=== PATIENT | female | born 1960 | race Caucasian/White ===

== ENCOUNTER → 2016-12-23 | Outpatient (CLI) | payer OTHER ==
[~2016-12-23] VITALS: Ht 160 cm; Wt 90.7 kg
[~2016-12-23] MED LIST: ABILIFY 2 MG2 M1 PO; ACTIGALL300 MG PO; ACTIQ 400 MCG400 MCG BU; ACTIQ BC; ACTIQ BUCCAL; ACTIQ400 MCG BC; ADULT LOW DOSE81 MG PO; ADVAIR HFA115 MCG/21 INH; ALBUTEROL2.5 MG/0.1 IH; ALBUTEROL2.5 MG/3 M INH; ALEVE220 M1 PO; AMITRIPTYLINE H25 M2 PO; ASPIR 8181 MG PO; AUGMENTIN 875875 M1 PO; AVELOX 400 MG400 MG PO; BREO ELLIPTA 11 EACH IH; BYSTOLIC10 MG PO; CALCIUM 500 +1 EAC5 PO; CENTRUM SILVER1 EAC3 PO; CHLORDIAZEPOXIDE5 M2 PO; COLACE100 MG PO; CYCLOBENZAPRINE10 MG PO; CYMBALTA20 MG PO; DAZIDOX10 MG PO; DEXILANT60 MG PO; DILAUDID HP10 MG/M1 IT; DILAUDID-H10 MG/1 M1 IJ; DIOVAN HCT 3201 EAC1 PO; ELAVIL PO; EPIPEN0.3 MG/0.3 IM; FERROUS GLUCON324 MG PO; FIFTY50 RESERV1 EACH; FISH OIL 1,0001 EAC5 PO; FISH OIL 1,001000 M3 PO; FISHOIL PO; FLUOXETINE HCL20 M1 PO; GLYCOLAX POWDER17 G1 PO; HYDROCHLOROTH12.5 MG PO; HYDROCHLOROTHIA25 M1 PO; HYDROXYZINE HCL10 M1 PO; IRON325 PO; JANUMET 50-5001 EACH PO; KLOR-CON 88 ME1 PO; LANTUS SC; LASIX 20 MG TAB20 MG PO; LASIX 40 MG TAB40 M1 PO; LEVAQUIN; LEVOTHROID75 MCG PO; LEVOTHYROXIN0.025 MG PO; LEVOTHYROXIN0.075 MG PO; LIDODERM 5%1 PATCH TOP; LINZESS145 MCG PO; LYRICA; MEDROLDOSEPACK PO; METOCLOPRAMIDE 55 M1 PO; MIRALAX255 GM PO; MULTI-VITAMIN1 EAC1 PO; NEURONTIN 300300 M1 PO; NORFLEX100 MG PO; NORVASC 5 MG TAB5 MG PO; NOVOLOG100 UNIT/1 SQ; PANTOPRAZOLE SO40 M1 PO; PRAVACHOL20 MG PO; PREDNISONE 5 MG5 M1 PO; PREDNISONE PO; PROAIR HFA8.5 GM INH; PROTONIX40 M2 PO; PROVENTIL IH; PROZAC 20 MG20 M1 PO; RANITIDINE HCL300 M1 PO; SYMBICORT IN; SYMBICORT160 MCG/4. PO; VALIUM5 MG PO; VALSARTAN-HCTZ1 EAC3 PO; VENTOLIN HFA 1818 GM INH; VENTOLIN HFA INH8 GM INH; VENTOLIN17 GM INH; VITAMIN B122500 MCG PO; VITAMIN D1000 UNI1 PO; VITAMIN D3400 UNIT PO; XANAX 0.5 MG0.5 MG PO; XOLAIR IJ
--- NOTE | ~2016-12-23 | P ---
[facility] [place] [address] PROCEDURE REPORT Name: YODERDANIELLE MELISSA Room #: REG TD Car#: [id number] Admission: 12/23/16 Attend Phys: Jame Juares Discharge: Date of : 60 Report #: [id number] THIS REPORT FOR: //name// CC: Jame NASH MD DATE OF SERVICE: 12/23/2016 PROCEDURE PERFORMED: Upper endoscopy with biopsies. HISTORY OF PRESENT ILLNESS: The patient is a 56-year-old female with a history of Colindres's esophagus and low-grade dysplasia has undergone ablation therapy by myself multiple times in the past, last upper endoscopy was negative for Colindres's 6 months ago. She denies any dysphagia. She has a history of Michael fundoplication. She does take a PPI on a daily basis. DESCRIPTION OF PROCEDURE: The risks and benefits of the procedure were explained to the patient, those risks including but not limited to bleeding, perforation, the risk of sedation. She understood these risks and gave informed consent. Sedation was given using propofol per anesthesia. Next, using a standard Aggiosn upper endoscope, the scope was placed in the patient's mouth and advanced under direct vision through the esophagus, stomach and into the second portion of the duodenum. The upper and mid esophagus were normal in appearance. In the distal esophagus at the GE junction, no obvious Colindres's was noted; however, there was one small area of erythema; therefore, biopsies were obtained. No esophagitis was noted. Upon entering the stomach, surgical changes of Michael fundoplication were noted. Overall, the gastric mucosa was normal. The pylorus was normal and patent. The duodenal bulb, first and second portion were all normal. The scope was then withdrawn and the procedure terminated. The patient tolerated the procedure well. IMPRESSION: 1. No obvious Colindres's esophagus; however, biopsy was obtained at the GE junction. 2. Surgical changes of Michael fundoplication noted. 3. Otherwise, normal upper endoscopy. RECOMMENDATIONS: 1. Await biopsy results. 2. Continue daily PPI therapy. [facility] [address] [place] [address] PROCEDURE REPORT Name: DANIELLE YODER MELISSA Room #: REG CLMarbin Car#: [id number] Admission: 12/23/16 Attend Phys: Jame Juares Discharge: Date of : 60 Report #: [id number] Thank you for allowing me to participate in her care. By: [id number] Jame Esparza MD /nt
--- NOTE | ~2016-12-23 | P ---
[facility] [place] [address] PROCEDURE REPORT Name: YODERDANIELLE MELISSA Room #: REG TD Car#: [id number] Admission: 12/23/16 Attend Phys: Jame Juares Discharge: Date of : 60 Report #: [id number] THIS REPORT FOR: //name// CC: Jame BROWNISTINA JOSE ELIAS DATE OF SERVICE: 12/23/2016 PROCEDURE PERFORMED: Flexible sigmoidoscopy. HISTORY OF PRESENT ILLNESS: The patient is a 56-year-old female who had a small amount of bright red blood per rectum recently. She has no further symptoms at this time. She actually had a full colonoscopy in November of 2014 that was normal. Plan was for colonoscopy today, however, due to lupine, I was not able to advance the scope to the cecum. DESCRIPTION OF PROCEDURE: The risks and benefits of the procedure were explained to the patient and those risks including but not limited to bleeding, perforation and the risk of sedation. She understood these risks and gave informed consent. Sedation was given using propofol per anesthesia. Next, a digital rectal exam was initially performed, which was normal. Next, using a standard Fujinon colonoscope, the scope was placed in the patient's anus and advanced under direct vision to approximately the transverse colon, at which point there was a lot of lupine with the scope despite multiple attempts, external pressure and a Amarilis wire, I was not able to advance the scope beyond this area, therefore began withdrawal the area of the transverse colon that was visualized, was normal. There were a few diverticula in the sigmoid colon and the descending colon was normal. There was no evidence of inflammation and no polyps were noted. The rectal mucosa was normal. On retroflexion, small nonbleeding internal hemorrhoids were noted. The scope was then withdrawn and the procedure terminated. The patient tolerated the procedure well. IMPRESSION: 1. Unable to advance the scope through the cecum due to lupine as described above. 2. A few small diverticula in the sigmoid colon and no evidence of bleeding. 3. Small internal hemorrhoids. Suspect this is the etiology of recent bleeding and no evidence of bleeding today. RECOMMENDATIONS: 1. Observe. 2. Repeat full colonoscopy in 7 years. [facility] [address] [place] [address] PROCEDURE REPORT Name: PARESHDANIELLE MELISSA Room #: REG Marbin Car#: [id number] Admission: 12/23/16 Attend Phys: Jame Juares Discharge: Date of : 60 Report #: [id number] Thank you for allowing me to participate in her care. By: 0904 [id number] Jame Esparza MD /nt
--- NOTE | ~2016-12-23 | S ---
[facility] [place] [address] SURGICAL PATH RPT PROCEDURE Name: JIMMY YODERSTEVEN TORRES Room #: REG TD Car#: [id number] Admission: 12/23/16 Date of : 60 Discharge: Report #: [id number] Path Case #: [id number] PATHOLOGY REPORT COLLECTION DATE: 12/23/2016 RECEIVED DATE: 12/23/2016 SUBMITTING PHYS: Dr. Jame Esparza OTHER PHYS: SPECIMEN(S) RECEIVED: A.Distal esophagus bx * * * * * * * * * * * * FINAL DIAGNOSIS: Gastroesophageal mucosa, distal esophagus, endoscopic biopsy: - Gastric cardia-type mucosa with mild chronic inflammation. - Squamous mucosa with mild esophagitis. - Negative for intestinal metaplasia or dysplasia. (IUV:ramirez; 12/26/2016) PATHOLOGIST: Lyric Hall M.D. REPORT ELECTRONICALLY SIGNED BY: Lyric Hall M.D. DATE/TIME: 12/26/2016 16:44 * * * * * * * * * * * * GROSS PATHOLOGY: Received in formalin labeled "Toni Yoder, biopsy distal esophagus," is a segment of marvin soft tissue measuring 0.3 cm in maximum dimension. The specimen is submitted entirely in cassette A1. (CAA; 12/24/2016) CLINICAL HISTORY: Pre-op diagnosis: Colindres's, history of polyps Post-op diagnosis: Bleeding, internal hemorrhoids, history of Colindres's INITIAL CPT CODE(S): A; 12943 Professional services performed by [facility] at [facility] [address] [place] [address] Technical services performed by [facility] at [address] [place] [id number]. [facility] [address] [place] [address] SURGICAL PATH RPT PROCEDURE Name: TONI YODER Room #: REG TD Car#: [id number] Admission: 12/23/16 Date of : 60 Discharge: Report #: [id number] Path Case #: [id number] [facility] [address] [address] PHONE: [phone] DIRECTOR: Erick Oropeza M.D. * * * END OF REPORT * * *
== END | disposition home or self-care (01) ==
LOC: GI 06:52
DX: K57.30 Diverticulosis of large intestine without perforation or abscess without bleeding (principal); K64.8 Other hemorrhoids; I10 Essential (primary) hypertension; E11.9 Type 2 diabetes mellitus without complications; J44.9 Chronic obstructive pulmonary disease, unspecified; D64.9 Anemia, unspecified; E78.00 Pure hypercholesterolemia, unspecified; E03.9 Hypothyroidism, unspecified; K21.9 Gastro-esophageal reflux disease without esophagitis; F41.8 Other specified anxiety disorders; F32.89 Other specified depressive episodes; Z85.51 Personal history of malignant neoplasm of bladder; Z87.442 Personal history of urinary calculi; Z95.5 Presence of coronary angioplasty implant and graft; Z79.4 Long term (current) use of insulin; Z90.710 Acquired absence of both cervix and uterus; Z79.899 Other long term (current) drug therapy; Z88.8 Allergy status to other drugs, medicaments and biological substances; Z98.890 Other specified postprocedural states
CPT/HCPCS: 62110; 62900

== ENCOUNTER → 2018-05-02 | Outpatient (CLI) | payer OTHER ==
[~2018-05-02] VITALS: Ht 160 cm; Wt 90.7 kg
[~2018-05-02] MED LIST changes: +FERROUS GLUCON324 M3 PO; +NORVASC5 MG PO
--- NOTE | ~2018-05-02 | P ---
[facility] [place] [address] PROCEDURE REPORT Name: PARESHDANIELLE MELISSA Room #: REG TD Car#: [id number] Admission: 05/02/18 Attend Phys: Jame Juares Discharge: Date of : 60 Report #: [id number] THIS REPORT FOR: //name// CC: Jame Bland MD DATE OF SERVICE: 05/02/2018 PROCEDURE PERFORMED: Upper endoscopy with biopsies and esophageal dilation. HISTORY OF PRESENT ILLNESS: The patient is a 58-year-old female with a previous history of Colindres's esophagus and low-grade dysplasia, status post ablation therapy. Last upper endoscopy performed on 12/23/2016 showed no obvious Colindres's. Biopsies were also negative for Colindres's at that time. She has been complaining of nausea and vomiting for the last month. She does have a history of insulin-dependent diabetes. She has also been complaining of dysphagia. She is currently only on Zantac b.i.d. She is not taking a PPI at this time. Plan is for repeat upper endoscopy. DESCRIPTION OF PROCEDURE: The risks and benefits of the procedure were explained to the patient, those risks including but not limited to bleeding, perforation, the risk of sedation. She understood these risks and gave informed consent. Sedation was given using propofol per Anesthesia. Next, using a standard Olympus upper endoscope, the scope was placed in the patient's mouth and advanced under direct vision through the esophagus, stomach and into the second portion of the duodenum. The larynx was normal in appearance. The upper and mid esophagus was normal. The GE junction appeared normal. No obvious Colindres's was noted. Several biopsies were obtained on the edge of the GE junction. No stricture narrowing, no erosive esophagitis was noted. Overall, the gastric mucosa was normal. There was a small amount of liquid and old food within the stomach. The pylorus was normal and patent. The duodenal bulb, first and second portion were all normal. The scope was then brought back up into the patient's stomach and a Savary guidewire was inserted through the scope, leaving the guidewire in place as the scope was then withdrawn. Next, a 51-Russian Savary dilation of the esophagus was then performed without difficulty. The wire and dilator removed. The scope was reintroduced into the patient's stomach. There was no evidence of mucosal tear after dilation. The scope was then withdrawn and the procedure terminated. The patient tolerated the procedure well. IMPRESSION: 1. No obvious Colindres's on exam today. 2. Small amount of fluid and small amount of food within the stomach may suggest gastroparesis. 3. Otherwise, normal upper endoscopy. [address] [address] PROCEDURE REPORT Name: DANIELLE YODER Room #: REG TD Car#: [id number] Admission: 05/02/18 Attend Phys: Jame Juares Discharge: Date of : 60 Report #: [id number] RECOMMENDATIONS: 1. Await biopsy results. 2. Would recommend discontinuing Zantac and starting daily PPI therapy with her history of Colindres's and low-grade dysplasia in the past. 3. Observe the patient's status post dilation. Thank you for allowing me to participate in her care. By: [id number] [id number] Jame Esparza MD /nt
--- NOTE | ~2018-05-02 | PATH ---
[facility] [address] [place] [address] PATHOLOGY RPT PROCEDURE Name: TONI YODER Room #: REG TD Car#: [id number] Admission: 05/02/18 Date of : 60 Discharge: Report #: [id number] Path Case #: [id number] [facility] Accession Number: [id number] . 01 Material submitted: . BX OF DISTAL ESOPHAGUS R/O BARRETTS . 01 Clinical history: . History of Colindres's esophagus, status post ablation, dysphagia, R/O Colindres's . 02 Diagnosis: Squamous and glandular mucosa "biopsy of distal esophagus, rule out Colindres's": - Reflux esophagitis with reactive squamous and glandular mucosa. - There is no evidence of goblet cell metaplasia, dysplasia or malignancy. (AHMET/db; 05/04/2018) LBQ/05/04/2018 . 02 Electronically signed: . Mihai Edwards MD, Pathologist NPI- [id number] . 01 Gross description: . The specimen is received in formalin, labeled "Toni Yoder, biopsy of distal esophagus, R/O Colindres's". Received are three segments of pale marvin soft tissue ranging in size from 0.2 to 0.4 cm in maximum dimensions. The specimen is submitted entirely in cassette A1. (CAA; 05/03/2018) QAC/QAC . 02 Pathologist provided ICD-10: K22.10 . 02 CPT . 421303 Specimen Comment: A courtesy copy of this report has been sent to Specimen Comment: [phone], . Specimen Comment: Report sent to Specimen Comment: Report sent to / DR NASH Performed at: 01 [facility] [address] [id number] MD Mickey Garcia MD Phone: [phone] Performed at: [address] [id number] [address] [address] PATHOLOGY RPT PROCEDURE Name: TONI YODER MELISSA Room #: REG TD Car#: [id number] Admission: 05/02/18 Date of : 60 Discharge: Report #: [id number] Path Case #: [id number] MD Lyric Hall MD Phone: [phone]
== END | disposition home or self-care (01) ==
LOC: GI 06:58
DX: K22.10 Ulcer of esophagus without bleeding (principal); I10 Essential (primary) hypertension; E11.9 Type 2 diabetes mellitus without complications; E78.00 Pure hypercholesterolemia, unspecified; D64.9 Anemia, unspecified; E03.9 Hypothyroidism, unspecified; J43.9 Emphysema, unspecified; F32.9 Major depressive disorder, single episode, unspecified; F41.9 Anxiety disorder, unspecified; K21.9 Gastro-esophageal reflux disease without esophagitis; Z90.710 Acquired absence of both cervix and uterus; Z85.51 Personal history of malignant neoplasm of bladder; Z87.442 Personal history of urinary calculi; Z98.890 Other specified postprocedural states; Z88.8 Allergy status to other drugs, medicaments and biological substances; Z79.899 Other long term (current) drug therapy; Z79.4 Long term (current) use of insulin; Z79.82 Long term (current) use of aspirin
CPT/HCPCS: 62110; 62900

== ENCOUNTER → 2018-08-09 | Outpatient (CLI) | payer OTHER | LOC: RAD 08:25 | DX: I11.9 Hypertensive heart disease without heart failure (principal); J98.4 Other disorders of lung; J45.909 Unspecified asthma, uncomplicated; E11.9 Type 2 diabetes mellitus without complications; E03.9 Hypothyroidism, unspecified; G47.30 Sleep apnea, unspecified; Z79.4 Long term (current) use of insulin ==

== ENCOUNTER → 2018-08-10 | Outpatient (CLI) | payer OTHER | LOC: CAT 11:12 | DX: K44.9 Diaphragmatic hernia without obstruction or gangrene (principal); J98.11 Atelectasis; K80.80 Other cholelithiasis without obstruction; J47.9 Bronchiectasis, uncomplicated ==